=== PATIENT | male | born 1990 | race Caucasian/White ===

== ENCOUNTER 2017-02-05 11:12 | Emergency (ER) | payer SELFPAY ==
[~2017-02-05] VITALS: Ht 162.6 cm; Wt 52.0 kg
[2017-02-05 11:17] VITALS: BP 116/74; PULSE 82; RESP 20; TEMP 98.2; O2SAT 99
[2017-02-05] MEDS ORDERED: LEVE500 PO (11:26)
--- NOTE | 2017-02-05 11:28 | PD ---
HPI . Seizure Chief Complaint: Seizure Time Seen by Provider: 11:20 Travel History International Travel<30 days: No Contact w/Intl Traveler<30days: No History of Present Illness HPI This patient presents to us by [facility] after a seizure. He has a known seizure disorder. He states that he has been forgetting to take his Keppra and has not had it in at least 3 days. The start of the seizure was not witnessed. He had gone to the bathroom and apparently had a seizure while sitting on the toilet. He fell and struck his lip on the vanity. He was found by his girlfriend with ongoing seizure activity. This was followed by a postictal period. He is now back to his baseline. He does not know the date of his last tetanus. He states that his last seizure was about 2 months ago. QUALITY: Tonic-clonic DURATION: A few minutes TIMING: Now resolved CONTEXT: Noncompliance with Keppra ASSOCIATED SYMPTOMS: Associated injury to the right upper lip PFS Social History Tobacco Use: No Allergies-Medications (Allergen,Severity, Reaction): Coded Allergies: No Known Allergies (Unverified , 02/05/17) Reported Meds & Prescriptions Reported Meds & Active Scripts Active Reported Keppra (Levetiracetam) Unknown Strength Tab Unknown Dose PO TID Review of Systems Except as stated in HPI: all other systems reviewed are Neg Skin: Positive Other (upper lip laceration) Neurologic: Positive: Seizures, No: Focal Abnormalities, Slurred Speech Physical Exam Narrative GENERAL: Patient is awake and alert and in no acute distress at this time. SKIN: He has a swollen right upper lip with some blood but no visible laceration. HEAD: Normocephalic/atraumatic. EYES: Pupils are equal. Extraocular movements are intact. ENT: Teeth are intact. NECK: Nontender with full range of motion. CARDIOVASCULAR: Heart sounds are normal. RESPIRATORY: Lungs are clear with full air movement throughout. MUSCULOSKELETAL: Atraumatic. NEUROLOGICAL: A and O 3. No cranial nerve deficits noted. Moving all 4 extremities equally. Normal operations representative strength. Normal [id number] exam. PSYCHIATRIC: Appropriate mood and affect. Data Data Last Documented VS Vital Signs Date Time Temp Pulse Resp B/P (MAP) Pulse Ox O2 Delivery O2 Flow Rate FiO2 02/05/17 12:20 82 17 111/67 (82) 98 02/05/17 11:30 Room Air 02/05/17 11:17 98.2 Orders Orders ^ Saline Lock (02/05/17 11:20) Tetanus/Diphtheria Tox Adult (Tetanus/Di (02/05/17 11:30) Levetiracetam 1000 Mg Inj (Keppra 1000 M (02/05/17 11:30) MDM Medical Decision Making Medical Screen Exam Complete: Yes Emergency Medical Condition: Yes Differential Diagnosis Differential diagnosis of seizure includes but is not limited to epilepsy, electrolyte abnormality, previous stroke, closed head injury Narrative Course This patient presents status post a seizure. He has a known history of seizure disorder. He has been noncompliant with his medication for the last several days. He will be loaded with IV Keppra and then discharged home and admonished to take his medications as directed. He states that he does have plenty of medicine. He just has not been taking it. I will update his tetanus. Diagnosis Primary Impression: Seizure Patient Instructions: Nonepileptic Seizures (GEN) Disposition: DISCHARGE HOME Condition: Stable Kira Trammell MD Feb 05, 2017 11:28
[2017-02-05] MEDS ORDERED: TETANUS/DIPHTHERIA TOXOID ADULT 0.5 ML VIAL IM ONE (11:30)
[2017-02-05] MEDS ORDERED: levETIRAcetam 1000 MG INJ 100 ML IV ONE (11:30)
[2017-02-05 12:20] VITALS: BP 111/67
== END 2017-02-05 12:35 | disposition home or self-care (01) ==
LOC: NEPC 11:12
DX: R56.9 Unspecified convulsions (principal); Z23 Encounter for immunization; Z91.14 Patient's other noncompliance with medication regimen
CPT/HCPCS: 90471; 90714; 96365; 99284; J1953

== ENCOUNTER 2017-09-12 17:30 | Emergency (ER) | payer SELFPAY ==
[~2017-09-12] VITALS: Ht 172.7 cm; Wt 65.0 kg
[~2017-09-12 17:30] MED LIST: LEVE500 PO
[2017-09-12 18:45] VITALS: BP 126/73; PULSE 85; RESP 18; TEMP 99.2; O2SAT 100
--- NOTE | 2017-09-12 18:56 | PD ---
HPI Chief Complaint: Seizure Time Seen by Provider: 18:39 Travel History International Travel<30 days: No Contact w/Intl Traveler<30days: No Traveled to known affect area: No History of Present Illness HPI Patient is a 26 year old male with history of "seizures" since 2011, presents to ER with c/o of seizure episode. Patient reports that he is supposed to be taking Keppra for seizures, reports that he cannot afford the Keppra so he has been taking a marijuana oil. Patient reports that he researched marijuana oil, reports that after his extensive research, it read that marijuana helps with seizure prevention. Patient reports that he has been doing this for the past year and has been seizure-free. Patient was at work today, patient was found in the kitchen floor, patient had an unwitnessed seizure, patient had no incontinence of urine. Patient denies any headache or dizziness, denies any chest pain or shortness of breath. Patient with no abdominal pain, no nausea or vomiting or dizziness. Patient has not follow-up with a neurologist in a very long time, reports that he recently moved to this area. Patient with no other medical problems or complaints at this time. PFSH Past Medical History Diminished Hearing: No Neurologic: Yes Seizures: Yes ?: Not Past Surgical History Surgical History: No Previous Surgery Social History Alcohol Use: No Tobacco Use: No Substance Use: No Allergies-Medications (Allergen,Severity, Reaction): Coded Allergies: No Known Allergies (Unverified , 02/05/17) Reported Meds & Prescriptions Reported Meds & Active Scripts Active Tegretol (Carbamazepine) 200 Mg Tab 200 Mg PO BID Reported Keppra (Levetiracetam) Unknown Strength Tab Unknown Dose PO TID Review of Systems General / Constitutional: No: Fever Eyes: No: Visual changes HENT: No: Headaches, Neck Pain Cardiovascular: No: Chest Pain or Discomfort Respiratory: No: Shortness of Breath Gastrointestinal: No: Abdominal Pain Genitourinary: No: Dysuria Musculoskeletal: No: Pain Skin: No Rash Neurologic: Positive: Seizures, No: Weakness Psychiatric: No: Depression Endocrine: No: Polydipsia Hematologic/Lymphatic: No: Easy Bruising Physical Exam Narrative GENERAL: NAD SKIN: Focused skin assessment warm/dry. HEAD: Atraumatic. Normocephalic. EYES: Pupils equal and round. No scleral icterus. No injection or drainage. ENT: No nasal bleeding or discharge. Mucous membranes pink and moist. NECK: Trachea midline. No JVD. CARDIOVASCULAR: Regular rate and rhythm. No murmur appreciated. RESPIRATORY: No accessory muscle use. Clear to auscultation. Breath sounds equal bilaterally. GASTROINTESTINAL: Abdomen soft, non-tender, nondistended. Hepatic and splenic margins not palpable. MUSCULOSKELETAL: No obvious deformities. No clubbing. No cyanosis. No edema. NEUROLOGICAL: Awake and alert. No obvious cranial nerve deficits. Motor grossly within normal limits. Normal speech. PSYCHIATRIC: Appropriate mood and affect; insight and judgment normal. Data Data Last Documented VS Vital Signs Date Time Temp Pulse Resp B/P (MAP) Pulse Ox O2 Delivery O2 Flow Rate FiO2 09/12/17 18:45 99.2 85 18 126/73 (90) 100 Room Air Orders Orders Complete Blood Count With Diff (09/12/17 18:48) Basic Metabolic Panel (Bmp) (09/12/17 18:48) Ct Brain W/O Iv Contrast(Rout) (09/12/17 ) Ecg Monitoring (09/12/17 18:48) Iv Access Insert/Monitor (09/12/17 18:48) Oximetry (09/12/17 18:48) Sodium Chloride 0.9% Flush (Ns Flush) (09/12/17 19:00) Carbamazepine (Tegretol) (09/12/17 19:45) Potassium Chloride (Kcl) (09/12/17 21:15) Labs Laboratory Tests Test 09/12/17 20:25 White Blood Count 17.9 TH/MM3 Red Blood Count 4.11 MIL/MM3 Hemoglobin 13.3 GM/DL Hematocrit 38.6 % Mean Corpuscular Volume 94.0 FL Mean Corpuscular Hemoglobin 32.4 PG Mean Corpuscular Hemoglobin Concent 34.5 % Red Cell Distribution Width 12.6 % Platelet Count 185 TH/MM3 Mean Platelet Volume 9.8 FL Neutrophils (%) (Auto) 86.7 % Lymphocytes (%) (Auto) 7.5 % Monocytes (%) (Auto) 5.0 % Eosinophils (%) (Auto) 0.6 % Basophils (%) (Auto) 0.2 % Neutrophils # (Auto) 15.5 TH/MM3 Lymphocytes # (Auto) 1.3 TH/MM3 Monocytes # (Auto) 0.9 TH/MM3 Eosinophils # (Auto) 0.1 TH/MM3 Basophils # (Auto) 0.0 TH/MM3 CBC Comment DIFF FINAL Differential Comment Blood Urea Nitrogen 13 MG/DL Creatinine 0.85 MG/DL Random Glucose 86 MG/DL Calcium Level 8.9 MG/DL Sodium Level 141 MEQ/L Potassium Level 3.3 MEQ/L Chloride Level 105 MEQ/L Carbon Dioxide Level 26.8 MEQ/L Anion Gap 9 MEQ/L Estimat Glomerular Filtration Rate 111 ML/MIN MDM Medical Decision Making Medical Screen Exam Complete: Yes Emergency Medical Condition: Yes Medical Record Reviewed: Yes Interpretation(s) Vital Signs Date Time Temp Pulse Resp B/P (MAP) Pulse Ox O2 Delivery O2 Flow Rate FiO2 09/12/17 18:45 99.2 85 18 126/73 (90) 100 Room Air Differential Diagnosis seizure, electrolyte abnormality Narrative Course During the course of the patients emergency department visit, the patients history, examination, and differential diagnosis were reviewed with the patient. The patient was placed on a monitor technician with oximetry and frequent blood pressure monitoring. The patient had an IV access obtained and blood work sent for analysis. The patient was initially provided tegretol The patients laboratory studies were reviewed and remarkable for CBC & BMP Diagram 09/12/17 20:25 Calcium Level 8.9 Radiology studies were reviewed and remarkable for Last Impressions Head CT 09/12/17 0000 Signed Impressions: CONCLUSION: 1. No acute intracranial abnormalities. Ethmoid sinus mucosal disease. Case reviewed with Dr. Robins, recommends starting tegretol 200mg bid as this is an effective and affordable, patient will need to follow up as outpatient. Patient refusing tegretol, he does not want any medications started, request to be discharged, I will give him a prescription for Tegretol should he change his mind. He does have a mildly elevated white blood cell count, most likely from stress reaction from seizure today. He will follow-up with his primary care doctor and will return to the emergency room as needed. Patient is alert and oriented 3, patient is capable of making his own decisions. Diagnosis Primary Impression: Recurrent seizures Additional Impression: Noncompliance with medications Referrals: Eldon Robins MD Patient Instructions: General Instructions Additional Instructions: Please provide patient with a copy of their lab work and studies at discharge* * Please follow up with your primary care doctor in 2-3 days Return to the ER if symptoms worsen or progress Return to the ER as needed Please follow up with neurologist as soon as possible Please take all prescribed medications for your seizures Scripts Carbamazepine (Tegretol) 200 Mg Tab 200 MG PO BID, #60 TAB 0 Refills Prov: Kalpana Hooker DO 09/12/17 Disposition: 01 DISCHARGE HOME Condition: Stable Kalpana Hooker DO Sep 12, 2017 18:56
[2017-09-12] MEDS ORDERED: SODIUM CHLORIDE 0.9% FLUSH 10 ML FLUSH IVF PRN (19:00)
[2017-09-12] MEDS ORDERED: TEGR200T PO (19:41)
[2017-09-12] MEDS ORDERED: carBAMazepine 200 MG TAB PO ONE (19:45)
--- NOTE | 2017-09-12 20:03 | RADRPT ---
EXAM DATE: 09/12/2017 7:30 PM EDT AGE/SEX: 26 years / Male INDICATIONS: Seizure with fall. CLINICAL DATA: This is the patient's initial encounter. Patient reports that signs and symptoms have been present for 1 day and indicates a pain score of 0/10. MEDICAL/SURGICAL HISTORY: . Seizures. . RADIATION DOSE: 37.16 CTDI (mGy) COMPARISON: No prior exams available for comparison. TECHNIQUE: CT of the head without contrast. Using automated exposure control and adjustment of the mA and/or kV according to patient size, radiation dose was kept as low as reasonably achievable to ob tain optimal diagnostic quality images. FINDINGS: Cerebrum: The ventricles are normal for age. No evidence of midline shift, mass lesion, hemorrhage or acute infarction. No extraaxial fluid collections are seen. Posterior Fossa: The cerebellum and brainstem are intact. The 4th ventricle is midline. The cerebe llopontine angle is unremarkable. Extracranial: The visualized portion of the orbits is intact. Skull: The calvaria is intact. No evidence of skull fracture. CONCLUSION: 1. No acute intracranial abnormalities. Ethmoid sinus mucosal disease. Electronically signed by: Karson Cervantes MD 09/12/2017 8:02 PM EDT
[2017-09-12 20:43] LABS: AUTOMATED NEUTROPHIL # 15.5 TH/MM3 (1.8-7.7); BASOPHIL % 0.2 % (0.0-2.0); EOSINOPHIL # 0.1 TH/MM3 (0-0.4); EOSINOPHIL % 0.6 % (0.0-4.0); HEMATOCRIT 38.6 % (39.0-51.0); HEMOGLOBIN 13.3 GM/DL (13.0-17.0); LYMPH % 7.5 % (9.0-44.0); LYMPHOCYTE # 1.3 TH/MM3 (1.0-4.8); MEAN CORPUSCULAR HEMOGLOBIN 32.4 PG (27.0-34.0); MEAN CORPUSCULAR HGB CONC 34.5 % (32.0-36.0); MEAN PLATELET VOLUME 9.8 FL (7.0-11.0); MONOCYTE # 0.9 TH/MM3 (0-0.9); NEUT % 86.7 % (16.0-70.0); PLATELET COUNT 185 TH/MM3 (150-450); RED BLOOD COUNT 4.11 MIL/MM3 (4.50-5.90); RED CELL DISTRIBUTION WIDTH 12.6 % (11.6-17.2); WHITE BLOOD COUNT 17.9 TH/MM3 (4.0-11.0)
[2017-09-12 21:03] LABS: BICARBONATE 26.8 MEQ/L (21.0-32.0); CALCIUM 8.9 MG/DL (8.5-10.1); CREATININE 0.85 MG/DL (0.60-1.30)
[2017-09-12] MEDS ORDERED: POTASSIUM CHLORIDE 10 MEQ CONTROLLED RELEASE TAB PO ONE (21:15)
== END 2017-09-12 22:15 | disposition home or self-care (01) ==
LOC: NEPD 17:30
DX: G40.909 Epilepsy, unspecified, not intractable, without status epilepticus (principal); Z91.14 Patient's other noncompliance with medication regimen
CPT/HCPCS: 70450; 80048; 85025